=== PATIENT | female | born 1990 | race Caucasian/White ===

== ENCOUNTER 2020-02-09 03:02 | Emergency (ER) | payer OTHER ==
[~2020-02-09] VITALS: Ht 162.6 cm; Wt 113.4 kg
[2020-02-09 03:24] VITALS: BP 153/87
== END 2020-02-09 05:36 | disposition home or self-care (01) ==
LOC: ER 03:04
DX: J02.0 Streptococcal pharyngitis (principal); J01.00 Acute maxillary sinusitis, unspecified; Z20.828 Contact with and (suspected) exposure to other viral communicable diseases
CPT/HCPCS: 36415; 71045; 87426; 99284; U0003